=== PATIENT | male | born 1960 | race Caucasian/White ===

== ENCOUNTER 2018-09-26 11:26 | Emergency (ER) | payer OTHER, BC ==
[2018-09-26 11:59] VITALS: BP 127/79; PULSE 61; TEMP 97.8; BMI 38.7
[2018-09-26] MEDS ORDERED: DIPHTH,PERTUSS(ACELL),TET 0.5 ML DISP.SYRIN IM ONE ×2 (12:47→12:58)
--- NOTE | 2018-09-26 12:54 | PDOC ---
History of Present Illness - General Chief Complaint: Injury Stated Complaint: INJURY TO HEAD (WORK RELATED) Time Seen by Provider: 09/26/18 12:13 History Source: Patient Exam Limitations: No Limitations Past History - Past Medical History Allergies/Adverse Reactions: Allergies Allergy/AdvReac Type Severity Reaction Status Date / Time No Known Allergies Allergy Verified 06/03/14 22:43 Home Medications: Ambulatory Orders Losartan Potassium 25 mg PO DAILY 06/04/14 Anemia: No Asthma: No Cancer: No Cardiac Disorders: No CVA: No COPD: No CHF: No Dementia: No Diabetes: No GI Disorders: No Disorders: No HTN: Yes Hypercholesterolemia: No Liver Disease: No Seizures: No Thyroid Disease: No - Surgical History Abdominal Surgery: No Appendectomy: No Cardiac Surgery: No Cholecystectomy: No Lung Surgery: No Neurologic Surgery: No Orthopedic Surgery: No - Immunization History Td Vaccination: Yes (GREATER THAN 10YRS AGO) TDAP Vaccination: Yes Immunization Up to Date: No (TETANUS GREATER THAN 10YRS) - Suicide/Smoking/Psychosocial Hx Smoking Status: No Smoking History: Never smoked Years of Tobacco Use: 0 Have you smoked in the past 12 months: No Number of Cigarettes Smoked Daily: 0 Cigars Per Day: 0 Information on smoking cessation initiated: No Hx Alcohol Use: No Drug/Substance Use Hx: No Substance Use Type: None Hx Substance Use Treatment: No *Physical Exam - Vital Signs Last Vital Signs Temp Pulse Resp BP Pulse Ox 97.8 F 61 16 127/79 100 09/26/18 11:56 09/26/18 11:56 09/26/18 11:56 09/26/18 11:56 09/26/18 11:56 - Physical Exam General Appearance: No: Apparent Distress HEENT: positive: Other (Small superficial abrasion along top of scalp) Neck: positive: Supple Respiratory/Chest: positive: Lungs Clear, Normal Breath Sounds. negative: Respiratory Distress Cardiovascular: positive: Regular Rhythm, Regular Rate, S1, S2. negative: Murmur Gastrointestinal/Abdominal: positive: Normal Bowel Sounds, Soft. negative: Tender, Distended, Guarding, Rebound Neurologic: positive: principal planner II-XII NML intact, Fully Oriented, Alert, Normal Mood/ Affect Moderate Sedation - Procedure Monitoring Vital Signs: Procedure Monitoring Vital Signs Temperature 97.8 F 09/26/18 11:56 Pulse Rate 61 09/26/18 11:56 Respiratory Rate 16 09/26/18 11:56 Blood Pressure 127/79 09/26/18 11:56 O2 Sat by Pulse Oximetry (%) 100 09/26/18 11:56 Medical Decision Making - Medical Decision Making 58 y/o M with hx of HTN, gout presents with injury to top of head from today. 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 Denies LOC, headache, n/v, dizziness, sob, cp, n/v, changes to vision. Uncertain of last tetanus Head trauma Site cleaned and covered with bacitracin No need for barbara Tdap updated Stable for d/c 09/26/18 12:50 *DC/Admit/Observation/Transfer Diagnosis at time of Disposition: Head trauma Qualifiers: Encounter type: initial encounter Qualified Code(s): S09.90XA - Unspecified injury of head, initial encounter - Discharge Dispostion Disposition: HOME Condition at time of disposition: Stable Decision to Admit order: No - Referrals Referrals: Jeff Delgadillo MD [Primary Care Provider] - 3 days - Patient Instructions Printed Discharge Instructions: DI for Closed Head Injury, DI for Abrasion Additional Instructions: Thank you for choosing [facility]. It was a pleasure taking care of you. You may apply bacitracin to site. Return to the Emergency Department if your symptoms worsen or persist, you have fever, heavy bleeding from site, pustular discharge, redness or other concerning symptoms. - Post Discharge Activity
== END 2018-09-26 13:04 | disposition home or self-care (01) ==
LOC: JERFT 11:26
PROC: 3E0234Z Introduction of Serum, Toxoid and Vaccine into Muscle, Percutaneous Approach (ICD-10-PCS; principal; 2018-09-26)
DX: S09.90XA Unspecified injury of head, initial encounter (principal); W22.09XA Striking against other stationary object, initial encounter; Y93.89 Activity, other specified; Y92.59 Other trade areas as the place of occurrence of the external cause; Y99.0 Civilian activity done for income or pay; I10 Essential (primary) hypertension
CPT/HCPCS: 90471; 90715; 99281-25

== ENCOUNTER 2022-03-12 16:42 | Emergency (ER) | payer BC ==
[2022-03-12 16:54] VITALS: BP 159/89; PULSE 52; TEMP 98.2; BMI 36.8
[2022-03-12] MEDS ORDERED: FAMOTIDINE 20 MG/50 ML IVPB 20 MG/50 ML MG IVPB ONE ×2 (16:55→16:58)
[2022-03-12] MEDS ORDERED: SODIUM CHLORIDE 0.9% 1000 ML INFUS.BAG IV ONE (16:55)
[2022-03-12] MEDS ORDERED: methylPREDNISolone NA SUCC 125 MG/2 ML VIAL IVPB ONE (16:56)
[2022-03-12] MEDS ORDERED: methylPREDNISolone NA SUCC 125 MG/2 ML VIAL ONE (16:58)
[2022-03-13] MEDS ORDERED: EPINEPHrine 1:1,000 0.3 MG/0.3 ML SYR IM ONE (17:43)
== END 2022-03-12 18:13 | disposition home or self-care (01) ==
LOC: FER 16:42
PROC: 3E033NZ Introduction of Analgesics, Hypnotics, Sedatives into Peripheral Vein, Percutaneous Approach (ICD-10-PCS; principal; 2022-03-12)
PROC: 3E033GC Introduction of Other Therapeutic Substance into Peripheral Vein, Percutaneous Approach (ICD-10-PCS; 2022-03-12)
PROC: 3E033GC Introduction of Other Therapeutic Substance into Peripheral Vein, Percutaneous Approach (ICD-10-PCS; 2022-03-12)
DX: T78.40XA Allergy, unspecified, initial encounter (principal)
CPT/HCPCS: 99284-25